=== PATIENT | male | born 1965 | race Caucasian/White ===

== ENCOUNTER 2018-11-19 16:35 | Emergency (ER) | payer OTHER ==
[2018-11-19 16:46] VITALS: BP 00/00
[2018-11-19] MEDS ORDERED: Cephalexin CAP* 500 MG PO ONE ×2 (17:19)
[2018-11-19] MEDS ORDERED: Cephalexin CAP* 250 MG PO ONE (17:23)
--- NOTE | 2018-11-19 19:43 | UC ---
Skin Complaint HPI - HPI Summary HPI Summary: 4 DAYS OF RIGHT FOREARM REDNESS, SWELLING AND WARMTH. NO FEVER. NO INJURY/ TRAUMA. NO THE IV PLACEMENT OR HISTORY OF IV DRUG USE. - History of Current Complaint Chief Complaint: UCUpperExtremity Time Seen by Provider: 11/19/18 16:57 Stated Complaint: RT ARM INJURY Hx Obtained From: Patient Onset/Duration: Gradual Onset, Lasting Days, Still Present Timing: Constant Onset Severity: Moderate Current Severity: Moderate Pain Intensity: 3 Pain Scale Used: 0-10 Numeric Location: Discrete - RIGHT ARM Character: Swelling, Pain, Raised Aggravating Factor(s): Touch Alleviating Factor(s): Nothing - Allergy/Home Medications Allergies/Adverse Reactions: Allergies Allergy/AdvReac Type Severity Reaction Status Date / Time meperidine [From Demerol] Allergy Abdominal Verified 11/19/18 16:47 Pain Penicillins Allergy Abdominal Verified 11/19/18 16:47 Pain Home Medications: Home Medications Lurasidone HCl [Latuda] 60 mg PO DAILY 11/19/18 [History Confirmed 11/19/18] PMH/Surg Hx/FS Hx/Imm Hx Endocrine History: Diabetes - MO, STENTS Cardiovascular History: Cardiac Disease, Hypertension Respiratory History: Asthma - Surgical History Surgical History: Yes Surgery Procedure, Year, and Place: CARDIAC STENTS - Xs 5 - ( 4 PLACED AT [facility] [place] [employer]-COND 5 UP TP 3T & 1 IN [place]) - DR MORRIS IS CARDIOLOGY; . Lt HAND SURG;. RIGHT HAND FOR CYST X2; - Family History Known Family History: Positive: Non-Contributory - Social History Alcohol Use: Weekly Substance Use Type: Marijuana Smoking Status (MU): Former Smoker Type: Cigarettes Amount Used/How Often: 1 PPD When Did the Patient Quit Smoking/Using Tobacco: 2009 - Immunization History Most Recent Influenza Vaccination: fall 2013 Most Recent Tetanus Shot: <10 yrs Most Recent Pneumonia Vaccination: 2009 Review of Systems All Other Systems Reviewed And Are Negative: Yes Constitutional: Positive: Negative Skin: Positive: Rash Respiratory: Positive: Negative Cardiovascular: Positive: Negative Gastrointestinal: Positive: Negative Physical Exam Triage Information Reviewed: Yes Appearance: Well-Appearing, No Pain Distress, Well-Nourished Vital Signs: Initial Vital Signs Temp 98.6 F 11/19/18 16:42 Pulse 86 11/19/18 16:42 Resp 16 11/19/18 16:42 BP 00/00 11/19/19 16:42 Pulse Ox 97 11/19/18 16:42 Vital Signs Reviewed: Yes Eyes: Positive: Conjunctiva Clear ENT: Positive: Hearing grossly normal Neck: Positive: Supple Respiratory: Positive: No respiratory distress, No accessory muscle use Cardiovascular: Positive: Pulses Normal Abdomen Description: Positive: Soft Musculoskeletal: Positive: ROM Intact Neurological: Positive: Alert Psychological: Positive: Age Appropriate Behavior Skin: Positive: Rashes - RIGHT ARM WARMTH, ERYTHEMA AND SWELLING EXTENDING FROM MID UPPER ARM TO WRIST. MILDLY TENDER. NO FOCAL BONY TENDERNESS. NO CORDS PALPATED. PUNCTATE BREAK IN THE SKIN MID FOREARM. Course/Dx - Course Course Of Treatment: PATIENT'S PRESENTATION MOST CONSISTENT WITH CELLULITIS. LOW SUSPICION FOR DVT/ THROMBOPHLEBITIS. WILL COVER WITH ANTIBIOTICS AND HAVE PATIENT FOLLOW-UP IF HE IS NOT IMPROVING OVER THE NEXT 1-2 DAYS. - Diagnoses Provider Diagnosis: Cellulitis of right arm Discharge - Sign-Out/Discharge Documenting (check all that apply): Patient Departure All imaging exams completed and their final reports reviewed: No Studies - Discharge Plan Condition: Stable Disposition: HOME Prescriptions: Cephalexin CAP* [Keflex 500 CAP*] 1,000 mg PO BID #[id number] cap Patient Education Materials: Cellulitis (ED) Referrals: Dasha Leyva MD [Primary Care Provider] - If Needed Additional Instructions: YOUR PRESENTATION IS CONSISTENT WITH A SKIN INFECTION OF YOUR RIGHT ARM. TAKE THE ANTIBIOTICS FOR THE FULL 10 DAYS. YOUR SYMPTOMS SHOULD IMPROVE AFTER 48 HOURS ON MEDICATION. GO TO THE ER WITHOUT FAIL IF YOUR SYMPTOMS ARE NOT IMPROVING EXPECTED OR IF YOU DEVELOP WORSENING PAIN, INCREASED SWELLING/ REDNESS, FEVER, NAUSEA, DECREASED RANGE OF MOTION OR ANY OTHER CONCERNING SYMPTOMS. - Billing Disposition and Condition Condition: STABLE Disposition: Home
== END 2018-11-19 17:35 | disposition home or self-care (01) ==
LOC: UCEAST 16:35
DX: L03.113 Cellulitis of right upper limb (principal); E11.9 Type 2 diabetes mellitus without complications; I25.2 Old myocardial infarction; Z87.891 Personal history of nicotine dependence; Z88.0 Allergy status to penicillin
CPT/HCPCS: 99212; A9270-GY; G0463

== ENCOUNTER 2018-11-21 15:53 | Emergency (ER) | payer OTHER ==
[2018-11-21] MEDS ORDERED: Clindamycin CAP* 150 MG PO ONE (18:57)
--- NOTE | 2018-11-21 19:15 | ED ---
Upper Extremity Pain - HPI Summary HPI Summary: Patient complains of redness and swelling to right arm 4 days. [facility] was given a prescription for Keflex with no improvement in symptoms. Denies pain, worsening of symptoms, trauma, IV drug use or IV placement. Denies fever, cough, sore throat, CP, SOB, N/V/D, abdominal pain, change in urine, change in BM. Medical history is DM, CAD, HTN , HLD. - History of Current Complaint Chief Complaint: EDExtremityUpper Stated Complaint: RIGHT ARM SWELLING PER PT Time Seen by Provider: 11/21/18 17:25 Hx Obtained From: Patient Mechanism Of Injury: Unknown Onset/Duration: Started Days Ago Timing: Constant Severity Initially: Moderate Severity Currently: Moderate Pain Location: Forearm Aggravating Factor(s): Nothing Alleviating Factor(s): Nothing Associated Signs & Symptoms: Positive: Swelling, Redness - Allergies/Home Medications Allergies/Adverse Reactions: Allergies Allergy/AdvReac Type Severity Reaction Status Date / Time meperidine [From Demerol] Allergy Abdominal Verified 11/21/18 16:01 Pain Penicillins Allergy Abdominal Verified 11/21/18 16:01 Pain PMH/Surg Hx/FS Hx/Imm Hx Endocrine/Hematology History: Reports: Hx Diabetes - Type 2 Cardiovascular History: Reports: Hx Angioplasty, Hx Coronary Artery Disease - CHOLESTEROL CONTROL WITH MEDICATION, Hx Hypertension Denies: Hx Pacemaker/ICD Respiratory History: Reports: Hx Asthma, Other Respiratory Problems/Disorders - HX OF PNEUMONIA GI History: Reports: Hx Crohn's Disease, Hx Ulcer - FROM MEDICATION, Other GI Disorders - CROHNS History: Denies: Hx Renal Disease, Other Problems/Disorders Musculoskeletal History: Reports: Hx Arthritis - GENERALIZED, Other Musculoskeletal History - rotator cuff left Sensory History: Reports: Hx Contacts or Glasses - GLASSES Denies: Hx Hearing Aid Opthamlomology History: Reports: Hx Contacts or Glasses - GLASSES Neurological History: Reports: Other Neuro Impairments/Disorders - BIPOLAR Psychiatric History: Reports: Hx Depression, Hx Bipolar Disorder, Other Psychiatric Issues/Disorders - bipolar Denies: Hx Panic Disorder - Surgical History Surgery Procedure, Year, and Place: CARDIAC STENTS - Xs 5 - ( 4 PLACED AT [facility] [place] [employer]-COND 5 UP TP 3T & 1 IN [place]) - DR MORRIS IS CARDIOLOGY; . Lt HAND SURG;. RIGHT HAND FOR CYST X2; Hx Anesthesia Reactions: No Infectious Disease History: No Infectious Disease History: Denies: Traveled Outside the [place] in Last 30 Days - Family History Known Family History: Positive: Non-Contributory - Social History Alcohol Use: Weekly Substance Use Type: Reports: Marijuana Smoking Status (MU): Former Smoker Type: Cigarettes Amount Used/How Often: 1 PPD Review of Systems Constitutional: Negative Eyes: Negative ENT: Negative Cardiovascular: Negative Respiratory: Negative Gastrointestinal: Negative Genitourinary: Negative Musculoskeletal: Negative Skin: Other Neurological: Negative Psychological: Normal All Other Systems Reviewed And Are Negative: Yes Physical Exam - Summary Physical Exam Summary: Area of erythema and swelling to medial right forearm and medial right bicep and elbow. Full range of motion of right elbow. No pain with palpation of right upper extremity. No evidence of trauma. Triage Information Reviewed: Yes Vital Signs On Initial Exam: Initial Vitals Temp Pulse Resp BP Pulse Ox 97 F 85 18 206/115 95 11/21/18 15:55 11/21/18 15:55 11/21/18 15:55 11/21/18 15:55 11/21/18 15:55 Vital Signs Reviewed: Yes Appearance: Positive: Well-Appearing Skin: Positive: Warm Head/Face: Positive: Normal Head/Face Inspection Eyes: Positive: Normal Neck: Positive: Supple Respiratory/Lung Sounds: Positive: Clear to Auscultation Cardiovascular: Positive: Normal Abdomen Description: Positive: Nontender Musculoskeletal: Positive: Normal Neurological: Positive: Normal Psychiatric: Positive: Normal AVPU Assessment: Alert - Ayden Coma Scale Best Eye Response: 4 - Spontaneous Best Motor Response: 6 - Obeys Commands Best Verbal Response: 5 - Oriented Coma Scale Total: 15 Diagnostics - Vital Signs Vital Signs Temp Pulse Resp BP Pulse Ox 11/21/18 15:55 97 F 85 18 206/115 95 - Laboratory Lab Statement: Any lab studies that have been ordered have been reviewed, and results considered in the medical decision making process. Course/Dx - Course Course Of Treatment: Patient complains of redness and swelling to right arm 4 days. Patient was seen at [facility] 2 days ago was given a prescription for Keflex with no improvement in symptoms. Denies pain, worsening of symptoms , trauma, IV drug use or IV placement. Denies fever, cough, sore throat, CP, SOB, N/V/D, abdominal pain, change in urine, change in BM. Medical history is DM, CAD, HTN, HLD. Triage BP 206/115. Patient refused recheck. Asymptomatic at this time. States he is compliant with his amlodipine and metoprolol. Denies to follow-up with primary care for further evaluation. Vital signs otherwise unremarkable. Ultrasound of right upper extremity negative for DVT. Rx for clindamycin. - Diagnoses Provider Diagnoses: Cellulitis Discharge - Sign-Out/Discharge Documenting (check all that apply): Patient Departure Patient Received Moderate/Deep Sedation with Procedure: No - Discharge Plan Condition: Stable Disposition: HOME Prescriptions: Clindamycin HCl 300 mg PO TID 7 Days #21 capsule Patient Education Materials: Cellulitis (ED) Referrals: Dasha Leyva MD [Primary Care Provider] - Additional Instructions: Take antibiotics as directed. Return to the ED for any new or worsening symptoms. - Billing Disposition and Condition Condition: STABLE Disposition: Home - Attestation Statements Provider Attestation: I am administratively signing this document. I was available for consultation for this patient. I did not evaluate the patient, did not have a doctor/patient relationship with the patient, or participate in any medical decision making or disposition decisions unless I am specifically named in the chart as having consulted on the patient. If I have consulted on the patient, please see my own ED note on the patient encounter. Georgia Contreras MD
[2018-11-21 19:26] VITALS: BP 0/0
== END 2018-11-21 19:25 | disposition home or self-care (01) ==
LOC: ED 15:53
DX: L03.113 Cellulitis of right upper limb (principal); E11.9 Type 2 diabetes mellitus without complications; I25.10 Atherosclerotic heart disease of native coronary artery without angina pectoris; E78.00 Pure hypercholesterolemia, unspecified; I10 Essential (primary) hypertension; Z88.0 Allergy status to penicillin; Z88.5 Allergy status to narcotic agent; Z87.891 Personal history of nicotine dependence; Z79.899 Other long term (current) drug therapy
CPT/HCPCS: 99282; A9270-GY

== ENCOUNTER 2023-08-26 18:44 | Observation (INO) ==
[2023-08-26 19:18] LABS: ABS Basophils 0.1 10^3/uL (0.0-0.1); ABS Eosinophils 0.1 10^3/uL (0.0-0.5); ABS Lymphocytes 1.4 10^3/uL (1.0-4.8); ABS Monocytes 0.8 10^3/uL (0.0-1.1); ABS Neutrophils 5.4 10^3/uL (1.5-7.6); ABS Nucleated RBC 0.01 10^3/ul; Eosinophil % 1.2 %; Hematocrit 36.9 % (38-53); Hemoglobin 12.5 g/dL (13.2-16.3); Lymphocyte % 17.7 %; Mean Corpuscular Hemoglobin 29.5 pg (27-33); Mean Corpuscular Hgb Conc 33.8 g/dL (31-36); Mean Corpuscular Volume 87.3 fL (80-97); Mean Platelet Volume 9.7 fL (7.5-11.2); Nucleated Red Blood Cells % 0.1 %/100WBC (0.0-0.8); Platelet Count 217 10^3/uL (150-450); Red Blood Count 4.23 10^6/uL (4.06-5.63); Red Cell Distribution Width 13.7 % (12-17); White Blood Count 7.8 10^3/uL (3.6-10.2)
[2023-08-26 19:22] LABS: INR 1.07 (0.83-1.13)
[2023-08-26 19:47] LABS: Albumin 4.4 g/dL (3.2-5.2); Albumin/Globulin Ratio 1.8 (1-3); Creatinine, Serum 0.88 mg/dL (0.67-1.17); Globulin 2.5 g/dL (2-4); Potassium 3.4 mmol/L (3.5-5.0); Total Bilirubin 1.2 mg/dL (0.2-1.0); Total Protein 6.9 g/dL (6.4-8.9); eGFR CKD-EPI 99.7 (>60)
[2023-08-26 20:41] LABS: High Sensitivity Troponin 1 Hr 41 pg/mL (<20)
[2023-08-26 23:02] LABS: C Reactive Protein 1.49 mg/L (<8.01)
[2023-08-26] MEDS: Aspirin EC 325 mg TAB.EC PO ONE (23:49)
[2023-08-26] MEDS: Enoxaparin 60 MG/0.6 ML SYR SUBCUT ONE (23:49)
[2023-08-27] MEDS: Potassium Chlor 20 meq TAB.ER PO ONE ×2 (03:35→10:08)
[2023-08-27] MEDS ORDERED: Dextrose 50% Syringe 50 ml 25 GM/50 ML SYRINGE IV PUSH PRN (04:52)
[2023-08-27] MEDS: Iodixanol (CONTRAST) 320 MG/ML 100 ML SDV IV ONE (04:59)
[2023-08-27 08:23] LABS: ABS Basophils 0.1 10^3/uL (0.0-0.1); ABS Eosinophils 0.2 10^3/uL (0.0-0.5); ABS Lymphocytes 1.6 10^3/uL (1.0-4.8); ABS Monocytes 0.6 10^3/uL (0.0-1.1); ABS Neutrophils 4.3 10^3/uL (1.5-7.6); ABS Nucleated RBC 0.01 10^3/ul; Eosinophil % 2.5 %; Hematocrit 34.5 % (38-53); Hemoglobin 11.9 g/dL (13.2-16.3); Lymphocyte % 24.3 %; Mean Corpuscular Hemoglobin 29.6 pg (27-33); Mean Corpuscular Hgb Conc 34.5 g/dL (31-36); Mean Corpuscular Volume 85.8 fL (80-97); Mean Platelet Volume 9.3 fL (7.5-11.2); Nucleated Red Blood Cells % 0.1 %/100WBC (0.0-0.8); Platelet Count 212 10^3/uL (150-450); Red Blood Count 4.02 10^6/uL (4.06-5.63); Red Cell Distribution Width 13.3 % (12-17); White Blood Count 6.7 10^3/uL (3.6-10.2)
[2023-08-27 08:54] LABS: Calcium 9.3 mg/dL (8.6-10.3); Creatinine, Serum 0.87 mg/dL (0.67-1.17); Magnesium 1.4 mg/dL (1.9-2.7); Potassium 3.4 mmol/L (3.5-5.0)
[2023-08-27] MEDS: Lithium Carb ER 300 mg TAB(NF) PO SCH (08:59)
[2023-08-27] MEDS: Aspirin EC 81 mg TAB.EC (enteric coated) PO SCH (08:59)
[2023-08-27] MEDS: oxyCODONE/Acetamin 5/325 mg TAB PO PRN (09:01)
[2023-08-27] MEDS: Magnesium Sulf 4 GM/100 ML IV 4,000 MG/100 ML BAG IVPB ONE (10:08)
[2023-08-27] MEDS: Enoxaparin 100 MG/ML SYR SUBCUT SCH ×2 (12:41→12:50)
[2023-08-27 14:05] LABS: Folate 7.08 ng/mL (5.90-24.80)
[2023-08-27 14:43] LABS: Ferritin 20.3 ng/mL (24-336)
[2023-08-27] MEDS: Chlorhexidine MOUTHWASH 0.12% 15 ML UDC SWISH SPIT SCH (15:03)
[2023-08-27] MEDS: KCL 20 MEQ/100 ML IVPREMIX 20 MEQ/100 ML BAG IV SCH (16:52)
[2023-08-28 06:53] LABS: ABS Basophils 0.1 10^3/uL (0.0-0.1); ABS Eosinophils 0.2 10^3/uL (0.0-0.5); ABS Lymphocytes 1.2 10^3/uL (1.0-4.8); ABS Monocytes 0.6 10^3/uL (0.0-1.1); ABS Neutrophils 5.4 10^3/uL (1.5-7.6); Eosinophil % 2.9 %; Hematocrit 36.7 % (38-53); Hemoglobin 12.4 g/dL (13.2-16.3); Lymphocyte % 16.5 %; Mean Corpuscular Hemoglobin 29.6 pg (27-33); Mean Corpuscular Hgb Conc 33.9 g/dL (31-36); Mean Corpuscular Volume 87.4 fL (80-97); Mean Platelet Volume 9.7 fL (7.5-11.2); Nucleated Red Blood Cells % 0.1 %/100WBC (0.0-0.8); Platelet Count 191 10^3/uL (150-450); Red Cell Distribution Width 13.8 % (12-17); White Blood Count 7.6 10^3/uL (3.6-10.2)
[2023-08-28 07:51] LABS: Calcium 9.5 mg/dL (8.6-10.3); Creatinine, Serum 0.59 mg/dL (0.67-1.17); Magnesium 1.7 mg/dL (1.9-2.7); eGFR CKD-EPI 112.5 (>60)
[2023-08-28] MEDS: Magnesium Sulfate 2 gm BAG 2 GM/50 ML BAG IVPB ONE (08:21)
[2023-08-28] MEDS: Enoxaparin 40 MG/0.4 ML SYR SUBCUT SCH (08:23)
[2023-08-28] MEDS: Magnesium Sulfate IV 1GM/100ML 1 GM/100 ML BAG IV ONE (09:30)
[2023-08-28] MEDS: Cyanocobalamin INJ 1,000 MCG/ML VIAL 1 ML VIAL IM ONE (11:35)
[2023-08-28 12:43] LABS: Erythrocyte Sed Rate 7 mm/Hr (0-19)
[2023-08-29] MEDS ORDERED: Regadenoson 0.4 MG/5 ML SYRINGE ONE (07:27)
[2023-08-29] MEDS ORDERED: Sulfur Hexaflouride MICROSPHR 25 MG VIAL ONE (10:19)
[2023-08-29 10:55] LABS: ABS Eosinophils 0.2 10^3/uL (0.0-0.5); ABS Lymphocytes 0.9 10^3/uL (1.0-4.8); ABS Monocytes 0.6 10^3/uL (0.0-1.1); ABS Neutrophils 6.7 10^3/uL (1.5-7.6); ABS Nucleated RBC 0.01 10^3/ul; Eosinophil % 2.6 %; Hematocrit 37.2 % (38-53); Hemoglobin 12.5 g/dL (13.2-16.3); Lymphocyte % 10.8 %; Mean Corpuscular Hemoglobin 29.3 pg (27-33); Mean Corpuscular Hgb Conc 33.7 g/dL (31-36); Mean Corpuscular Volume 86.9 fL (80-97); Nucleated Red Blood Cells % 0.1 %/100WBC (0.0-0.8); Platelet Count 194 10^3/uL (150-450); Red Blood Count 4.28 10^6/uL (4.06-5.63); White Blood Count 8.5 10^3/uL (3.6-10.2)
[2023-08-29 11:22] LABS: Calcium 9.4 mg/dL (8.6-10.3); Creatinine, Serum 0.58 mg/dL (0.67-1.17); Magnesium 1.7 mg/dL (1.9-2.7); Potassium 3.9 mmol/L (3.5-5.0)
[2023-08-29] MEDS: Magnesium Sulfate 2 gm BAG 2 GM/50 ML BAG IVPB ONE (12:37)
[2023-08-29] MEDS: Potassium Chlor 20 meq TAB.ER PO ONE (12:37)
[2023-08-29 13:30] VITALS: BP 160/97
[2023-08-31 14:55] LABS: Herpes Simplex Virus I IgG AB Negative (Negative); Herpes Simplex Virus II IgG AB Positive (Negative)
== END 2023-08-29 13:52 | disposition home or self-care (01) ==
LOC: EDHOLD 18:44 → ED 18:44 → SUATTDRO 08-27 00:38 → MEDTELE 08-27 01:26
PROVIDERS: ADMIT Internal Medicine; ATTEND Internal Medicine